=== PATIENT | female | born 1975 | race Two or more races ===

== ENCOUNTER 2019-05-24 21:47 | Emergency (ER) | payer SELFPAY ==
[2019-05-24 21:55] VITALS: BP 97/60; PULSE 84; TEMP 98.9; BMI 23.1
--- NOTE | 2019-05-24 22:45 | PDOC ---
Documentation entered by Emma Arguelles SCRIBE, acting as scribe for Ion Salas MD. Ion Salas MD: This documentation has been prepared by the yemiibe, Emma Arguelles SCRIBE, under my direction and personally reviewed by me in its entirety. I confirm that the documentation accurately reflects all work , treatment, procedures, and medical decision making performed by me. History of Present Illness - General Chief Complaint: Pain, Acute Stated Complaint: SWELLING TO RIGHT MIDDLE FINGER Time Seen by Provider: 05/24/19 21:48 History Source: Patient Exam Limitations: No Limitations - History of Present Illness Initial Comments: 05/24/19 22:40 The patient is a 44-year-old female who presents to the emergency department with swelling to the right middle finger. The patient denies biting her nails but reports she pulled off a loose skin from the same finger. Denies numbness, tingling, or loss of sensation. 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 MEDICATIONS: reviewed ALLERGIES: As per nursing notes General: No fevers or chills, no weakness, no weight loss HEENT: No change in vision. No sore throat,. No ear pain CardioVascular: No chest pain or shortness of breath Respiratory:No cough, or wheezing. Gastrointestinal: no nausea, vomiting, diarrhea or constipation, No rectal bleeding Genitourinary: No dysuria, hematuria, or frequency Musculoskeletal: +right middle finger swelling. No other joint or muscle pain or swelling Neurologic: No headache, vertigo, dizziness or loss of consciousness Psychiatric: nor depression Skin: No rashes or easy bruising Endocrine: no increased thirst or abnormal weight change Allergic: no skin or latex allergy All other systems reviewed and normal GENERAL: The patient is awake, alert, and fully oriented, in no acute distress. HEAD: Normal with no signs of trauma. EYES: Pupils equal, round and reactive to light, extraocular movements intact, sclera anicteric, conjunctiva clear. EXTREMITIES: +paronychia to the right middle finger, no extension of the infection past the first digit. Normal range of motion, no other edema. NEUROLOGICAL: Normal speech, normal gait. PSYCH: Normal mood, normal affect. SKIN: Warm, Dry, normal turgor, no rashes or lesions noted. Assessment and plan: This is a 44-year-old female comes in complaining of a paronychia to her right middle finger. Patient denies any other complaints. Seizure note incision and drainage of a paronychia Finger was anesthetized with 1% lidocaine no epi Ring block was performed using 4 mL Paronychia was incised and drained packing was placed sterile dressing was placed patient tolerated well Patient was discharged will follow-up with her primary care doctor as needed 05/24/19 22:44 Past History - Past Medical History Allergies/Adverse Reactions: Allergies Allergy/AdvReac Type Severity Reaction Status Date / Time No Known Allergies Allergy Verified 05/24/19 21:48 Home Medications: Ambulatory Orders NK [No Known Home Medication] 05/24/19 COPD: No Other medical history: DENIES - Suicide/Smoking/Psychosocial Hx Smoking History: Never smoked Have you smoked in the past 12 months: No Information on smoking cessation initiated: No Hx Alcohol Use: No Drug/Substance Use Hx: No *Physical Exam - Vital Signs Last Vital Signs Temp Pulse Resp BP Pulse Ox 98.9 F 84 16 97/60 98 05/24/19 21:48 05/24/19 21:48 05/24/19 21:48 05/24/19 21:48 05/24/19 21:48 *DC/Admit/Observation/Transfer Diagnosis at time of Disposition: Paronychia of finger of right hand - Discharge Dispostion Disposition: HOME Condition at time of disposition: Stable Decision to Admit order: No - Referrals - Patient Instructions Additional Instructions: Remove the packing tomorrow night and start the hot soaks as discussed by the doctor 2 hot soaks 3 times a day for 10 minutes at a time for 2-3 days. Return to the emergency department immediately with ANY new, persistent or worsening symptoms. Continue any medications as previously prescribed by your physician. You should follow up with your primary doctor as soon as possible regarding today's emergency department visit. . Please make sure your doctor reviews the results of your emergency evaluation. Thank you for coming to the Emergency Department today for your care. It was a pleasure to see you today. Please note that your evaluation is INCOMPLETE until you follow-up with your doctor. - Post Discharge Activity
== END 2019-05-24 23:22 | disposition home or self-care (01) ==
LOC: FER 21:47
PROC: 0H9FXZZ Drainage of Right Hand Skin, External Approach (ICD-10-PCS; principal; 2019-05-24)
DX: L03.011 Cellulitis of right finger (principal)
CPT/HCPCS: 87070; 87186; 87205; 99281-25